=== PATIENT | male | born 1945 | race Caucasian/White ===

== ENCOUNTER 2019-02-13 04:10 | Observation (INO) | payer MEDICARE, BC ==
--- NOTE | 2019-02-13 04:36 | EDM.PDOC ---
ED HPI GENERAL MEDICAL PROBLEM - General Chief Complaint: General Stated Complaint: syncope Time Seen by Provider: 02/13/19 04:20 Source of Information: Reports: Patient History Limitations: Reports: No Limitations - History of Present Illness INITIAL COMMENTS - FREE TEXT/NARRATIVE: Patient is a 73-year-old gentleman who came in to the ER for evaluation of near syncopal episode patient apparently felt lightheaded went down to the floor and as he was going down felt like he was passed out but did not lose consciousness then crawled back to bed and took a couple baby aspirins took a drink of water called his son and and was brought to the ER . Onset: Sudden Duration: Minutes:, Other (Currently not dizzy feels tired) Location: Reports: Generalized Severity: Moderate Improves with: Reports: Rest Context: Reports: Other Associated Symptoms: Reports: Syncope - Related Data Allergies Allergy/AdvReac Type Severity Reaction Status Date / Time No Known Allergies Allergy Verified 02/13/19 04:45 ED ROS GENERAL - Review of Systems Review Of Systems: See Below Constitutional: Reports: Chills (Yesterday), Weakness HEENT: Reports: Other (History of cataract surgery) Respiratory: Reports: Shortness of Breath. Denies: Cough Cardiovascular: Reports: Lightheadedness. Denies: Chest Pain, Blood Pressure Problem, Claudication Endocrine: Reports: Fatigue GI/Abdominal: Reports: No Symptoms, Other (History of constipation worse lately) : Reports: Frequency, Urinary Retention Musculoskeletal: Reports: Neck Pain (Extension of neck) Skin: Reports: Bruising Neurological: Reports: Dizziness Psychiatric: Reports: No Symptoms ED EXAM, GENERAL - Physical Exam Exam: See Below Exam Limited By: No Limitations General Appearance: Alert, WD/WN, No Apparent Distress Ears: Normal External Exam, Normal Canal, Hearing Grossly Normal, Normal TMs Nose: Normal Inspection, Normal Mucosa, No Blood Throat/Mouth: Normal Inspection, Normal Lips, Normal Teeth, Normal Gums, Normal Oropharynx, Normal Voice, No Airway Compromise Head: Atraumatic, Normocephalic Neck: Normal Inspection, Supple, Non-Tender, Full Range of Motion Respiratory/Chest: No Respiratory Distress, Lungs Clear, Normal Breath Sounds, No Accessory Muscle Use, Chest Non-Tender Cardiovascular: Normal Peripheral Pulses, Regular Rate, Rhythm, No Edema, No Gallop, No JVD, No Murmur, No Rub GI/Abdominal: Normal Bowel Sounds, Soft, Non-Tender, No Organomegaly, No Distention, No Abnormal Bruit, No Mass (Male) Exam: Deferred Rectal (Males) Exam: Deferred Back Exam: Normal Inspection, Full Range of Motion, NT Extremities: Normal Inspection, Normal Range of Motion, Non-Tender, Normal Capillary Refill, No Pedal Edema Neurological: Alert, Oriented, CN II-XII Intact, Normal Cognition, Normal Gait, Normal Reflexes, No Motor/Sensory Deficits Psychiatric: Normal Affect, Normal Mood Skin Exam: Warm, Dry, Intact, Normal Color, No Rash Lymphatic: No Adenopathy Course - Vital Signs Last Recorded V/S: Last Vital Signs Temp 96 F 02/13/19 05:20 Pulse 75 02/13/19 05:20 Resp 16 02/13/19 05:20 BP 145/87 H 02/13/19 05:20 Pulse Ox 98 02/13/19 05:20 - Orders/Labs/Meds Orders: Medication Orders Sodium Chloride (Saline Flush) 10 ml FLUSH ASDIRECTED PRN PRN Reason: Keep Vein Open Labs: Laboratory Tests 02/13/19 02/13/19 02/13/19 Range/Units 04:45 04:45 04:45 WBC 6.8 (4.0-10.2) K/uL RBC 5.09 (4.33-5.41) M/uL Hgb 15.4 (13.1-16.8) g/dL Hct 45.4 (39.0-49.0) % MCV 89.2 (84.0-98.0) fL MCH 30.3 (28.2-33.3) pg MCHC 33.9 (31.7-36.0) g/dL RDW 13.9 (11.2-14.1) % Plt Count 198 (150-350) K/uL Neut % (Auto) 55.3 (45.0-80.0) % Lymph % (Auto) 27.5 (10.0-50.0) % Burnet % (Auto) 13.4 (2.0-14.0) % Eos % (Auto) 3.5 (0.0-5.0) % Baso % (Auto) 0.3 (0.0-2.0) % Neut # (Auto) 3.75 (1.40-7.00) K/uL Lymph # (Auto) 1.87 (0.50-3.50) K/uL Burnet # (Auto) 0.91 (0.00-1.00) K/uL Eos # (Auto) 0.24 (0.00-0.50) K/uL Baso # (Auto) 0.02 (0.00-0.20) K/uL PT 10.7 (9.5-12.0) SEC INR 1.0 APTT 27.3 (21.0-31.3) SEC D-Dimer, Quantitative 986 H (0-400) ng/mL Sodium (136-145) mmol/L Potassium (3.5-5.1) mmol/L Chloride (98-107) mmol/L Carbon Dioxide (21.0-32.0) mmol/L BUN (7-18) mg/dL Creatinine (0.51-1.17) mg/dL Est Cr Clr Drug Dosing mL/min Estimated GFR (MDRD) mL/min Glucose (74-106) mg/dL Lactic Acid (0.4-2.0) mmol/L Calcium (8.5-10.1) mg/dL Magnesium (1.8-2.4) mg/dL Total Bilirubin (0.2-1.0) mg/dL AST (15-37) U/L ALT (12-78) U/L Alkaline Phosphatase (46-116) IU/L Creatine Kinase (26-308) U/L Creatine Kinase Index (0.0-2.5) % CK-MB (CK-2) (0.00-3.60) ng/mL Troponin I (0.000-0.056) ng/mL NT-Pro-B Natriuret Pep (0-125) pg/mL Total Protein (6.4-8.2) g/dL Albumin (3.4-5.0) g/dL 02/13/19 02/13/19 Range/Units 04:45 04:45 WBC (4.0-10.2) K/uL RBC (4.33-5.41) M/uL Hgb (13.1-16.8) g/dL Hct (39.0-49.0) % MCV (84.0-98.0) fL MCH (28.2-33.3) pg MCHC (31.7-36.0) g/dL RDW (11.2-14.1) % Plt Count (150-350) K/uL Neut % (Auto) (45.0-80.0) % Lymph % (Auto) (10.0-50.0) % Burnet % (Auto) (2.0-14.0) % Eos % (Auto) (0.0-5.0) % Baso % (Auto) (0.0-2.0) % Neut # (Auto) (1.40-7.00) K/uL Lymph # (Auto) (0.50-3.50) K/uL Burnet # (Auto) (0.00-1.00) K/uL Eos # (Auto) (0.00-0.50) K/uL Baso # (Auto) (0.00-0.20) K/uL PT (9.5-12.0) SEC INR APTT (21.0-31.3) SEC D-Dimer, Quantitative (0-400) ng/mL Sodium 141 (136-145) mmol/L Potassium 3.9 (3.5-5.1) mmol/L Chloride 104 (98-107) mmol/L Carbon Dioxide 26.9 (21.0-32.0) mmol/L BUN 25 H (7-18) mg/dL Creatinine 1.23 H (0.51-1.17) mg/dL Est Cr Clr Drug Dosing 62.19 mL/min Estimated GFR (MDRD) 58 mL/min Glucose 108 H (74-106) mg/dL Lactic Acid 0.7 (0.4-2.0) mmol/L Calcium 8.6 (8.5-10.1) mg/dL Magnesium 1.7 L (1.8-2.4) mg/dL Total Bilirubin 0.6 (0.2-1.0) mg/dL AST 19 (15-37) U/L ALT 28 (12-78) U/L Alkaline Phosphatase 62 (46-116) IU/L Creatine Kinase 158 (26-308) U/L Creatine Kinase Index 1.6 (0.0-2.5) % CK-MB (CK-2) 2.50 (0.00-3.60) ng/mL Troponin I 0.000 (0.000-0.056) ng/mL NT-Pro-B Natriuret Pep 40 (0-125) pg/mL Total Protein 6.8 (6.4-8.2) g/dL Albumin 3.7 (3.4-5.0) g/dL Meds: Medications Generic Name Dose Route Start Last Admin Trade Name Freq PRN Reason Stop Dose Admin Sodium Chloride 10 ml 02/13/19 05:16 Saline Flush FLUSH ASDIRECTED PRN Keep Vein Open Departure - Departure Time of Disposition: 05:43 Disposition: Refer to Observation Condition: Fair Clinical Impression: Syncopal episodes - Discharge Information - Problem List & Annotations (1) Syncopal episodes SNOMED Code(s): 548048904 Code(s): R55 - SYNCOPE AND COLLAPSE Status: Acute Current Visit: Yes Annotation/Comment:: Syncopal episode without chest pain patient did take 3 baby aspirin prior to coming over here - Problem List Review Problem List Initiated/Reviewed/Updated: Yes - Assessment/Plan Admission H&P: Please use this note as an admission H&P Plan: We will admit him to observation place on telemetry repeat troponins 3 do ultrasounds of neck consider doing an Angio CT to determine if vertebral arteries are pain since when he extends his neck he has syncopal episodes. D- dimer is elevated patient is low risk consider not doing lower extremity ultrasound or chest CT
[2019-02-13] MEDS ORDERED: Sodium Chloride 0.9% 10 ML Syringe FLUSH PRN ×2 (05:16→08:39)
[2019-02-13] MEDS ORDERED: Ondansetron 4 MG/2 ML SDV IVPUSH PRN (08:30)
[2019-02-13] MEDS ORDERED: Temazepam 15 MG Cap PO PRN (08:39)
[2019-02-13] MEDS ORDERED: Famotidine 20 MG/2 ML SDV IVPUSH ONE (08:44)
[2019-02-13] MEDS ORDERED: methylPREDNISolone Sodium Succinate 125 MG/2 ML SDV IVPUSH ONE (08:47)
[2019-02-13] MEDS ORDERED: Iopamidol 755 Mg/ML 100 ML Bottle IVPUSH ONE (09:00)
[2019-02-13] MEDS ORDERED: Acetaminophen 325 MG Tab PO PRN (09:00)
[2019-02-13] MEDS ORDERED: Meclizine 25 MG Tab PO PRN (09:00)
[2019-02-13] MEDS: Magnesium Oxide 400 MG Tab PO SCH (09:27)
[2019-02-13] MEDS: amLODIPine 5 MG Tab PO SCH (09:27)
[2019-02-13] MEDS: Enoxaparin 100 MG/1 ML Syringe SUBCUT SCH (09:32)
--- NOTE | 2019-02-13 13:04 | PCM.SN ---
- Free Text/Narrative Note: Hospital records reviewed with patient admitted for a near syncopal episode. Cardiac workup is negative for acute KS at this time. Vital signs and neurological status are stable with neurological checks to be initiated with vitals. No apparent significant injury from near syncopal episode prior to admission. Carotid artery Doppler studies do show bilateral disease with estimated 50-69 percent internal carotid artery stenosis per verbal report from the wafer fabrication technician. His symptoms seem to be related more to labyrinthitis, however. I did do another ear exam today with no evidence of acute infection. When necessary meclizine and IV Solu-Medrol were given earlier this morning with patient somewhat symptomatic at time of carotid artery Doppler studies. He was cautioned to not take OTC aspirin for nonspecific symptoms with the patient apparently taken a "handful" of aspirin for his above symptoms prior to arrival. High-dose IV Pepcid therapy was initiated this morning, however no other GI complaints despite episode of emesis in the radiology department. Patient has been having some problems with chronic constipation and has refused recommended colonoscopy to this point from his regular providers by his history. He was counseled on the importance of the colonoscopy MARIA E after his cardiac status has been determined. CTA scan of the chest earlier this morning does not show any evidence of PE however note calcified coronary arteries and thoracic aorta. Cardiolite stress test on an outpatient basis is advisable. Echocardiogram could not be performed today however should be considered on outpatient basis. 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 High-dose subcutaneous Lovenox was initiated early this morning secondary to near syncopal episode. Magnesium oxide was also initiated this morning secondary to his hypomagnesemia, which should also be beneficial for his constipation. Continue to observe his renal function closely. Monitor shows heart rate in the 70s-80s with no ectopy or arrhythmia with improvement of borderline occasional bradycardia on arrival. He apparently did have some nonspecific left arm paresthesias with symptoms earlier today, and he has had similar episodes in the past. Repeat lab work, EKG, etc. in the a.m[place] [facility] [place] the [place]
[2019-02-13] MEDS ORDERED: Benazepril 10 MG Tab PO SCH (18:00)
[2019-02-13] MEDS ORDERED: Metoprolol Succinate 25 MG Tab.ER PO SCH (18:39)
[2019-02-13] MEDS ORDERED: atorvaSTATin 10 MG Tab PO SCH (20:00)
[2019-02-14] MEDS: Magnesium Oxide 400 MG Tab PO SCH (07:28)
[2019-02-14] MEDS: amLODIPine 5 MG Tab PO SCH (07:29)
[2019-02-14 07:49] LABS: HEMOGLOBIN A1C 5.6 % (4.3-5.7)
[2019-02-14 07:51] LABS: CHLORIDE,CL 106 mmol/L (98-107); SODIUM,NA 142 mmol/L (136-145)
[2019-02-14] MEDS ORDERED: Famotidine 20 MG/2 ML SDV IVPUSH SCH (08:00)
[2019-02-14] MEDS ORDERED: Aspirin 81 MG Tab.Chew PO SCH (08:00)
[2019-02-14] MEDS: Enoxaparin 100 MG/1 ML Syringe SUBCUT SCH (08:37)
[2019-02-14 12:06] VITALS: BP 114/64
--- NOTE | 2019-02-14 12:26 | PCM.PN ---
- General Info Date of Service: 02/14/19 Admission Dx/Problem (Free Text): Syncope Functional Status: Reports: Tolerating Diet, Ambulating, Urinating - Review of Systems General: Reports: No Symptoms (feels just fine and wants to get out of here!) HEENT: Reports: No Symptoms Pulmonary: Reports: No Symptoms Cardiovascular: Reports: No Symptoms Gastrointestinal: Reports: No Symptoms Genitourinary: Reports: No Symptoms Musculoskeletal: Reports: No Symptoms Skin: Reports: No Symptoms Neurological: Reports: No Symptoms Psychiatric: Reports: No Symptoms - Patient Data Vitals - Most Recent: Last Vital Signs Temp 98.1 F 02/14/19 11:29 Pulse 65 02/14/19 11:29 Resp 16 02/14/19 11:29 BP 114/64 02/14/19 11:29 Pulse Ox 96 02/14/19 11:29 Weight - Most Recent: 213 lb 8 oz I&O - Last 24 Hours: Intake & Output 02/13/19 02/14/19 02/14/19 22:59 06:59 14:59 Intake Total 480 Balance 480 Lab Results Last 24 Hours: Laboratory Results - last 24 hr 02/13/19 02/14/19 02/14/19 Range/Units 17:00 07:00 07:00 WBC 12.1 H (4.0-10.2) K/uL RBC 4.76 (4.33-5.41) M/uL Hgb 14.5 (13.1-16.8) g/dL Hct 42.9 (39.0-49.0) % MCV 90.1 (84.0-98.0) fL MCH 30.5 (28.2-33.3) pg MCHC 33.8 (31.7-36.0) g/dL RDW 13.9 (11.2-14.1) % Plt Count 220 (150-350) K/uL Neut % (Auto) 77.1 (45.0-80.0) % Lymph % (Auto) 12.6 (10.0-50.0) % Howard % (Auto) 10.2 (2.0-14.0) % Eos % (Auto) 0.0 (0.0-5.0) % Baso % (Auto) 0.1 (0.0-2.0) % Neut # (Auto) 9.33 H (1.40-7.00) K/uL Lymph # (Auto) 1.53 (0.50-3.50) K/uL Howard # (Auto) 1.23 H (0.00-1.00) K/uL Eos # (Auto) 0.00 (0.00-0.50) K/uL Baso # (Auto) 0.01 (0.00-0.20) K/uL D-Dimer, Quantitative 480 H (0-400) ng/mL Sodium (136-145) mmol/L Potassium (3.5-5.1) mmol/L Chloride (98-107) mmol/L Carbon Dioxide (21.0-32.0) mmol/L BUN (7-18) mg/dL Creatinine (0.51-1.17) mg/dL Est Cr Clr Drug Dosing mL/min Estimated GFR (MDRD) mL/min Glucose (74-106) mg/dL Hemoglobin A1c (4.3-5.7) % Calcium (8.5-10.1) mg/dL Total Bilirubin (0.2-1.0) mg/dL AST (15-37) U/L ALT (12-78) U/L Alkaline Phosphatase (46-116) IU/L Creatine Kinase 136 (26-308) U/L Creatine Kinase Index 1.7 (0.0-2.5) % CK-MB (CK-2) 2.30 (0.00-3.60) ng/mL Troponin I 0.000 (0.000-0.056) ng/mL Total Protein (6.4-8.2) g/dL Albumin (3.4-5.0) g/dL Triglycerides (30-150) mg/dL Cholesterol (100-200) mg/dL LDL Cholesterol, Calc (0-100) mg/dL HDL Cholesterol (40-60) mg/dL 02/14/19 02/14/19 Range/Units 07:00 07:00 WBC (4.0-10.2) K/uL RBC (4.33-5.41) M/uL Hgb (13.1-16.8) g/dL Hct (39.0-49.0) % MCV (84.0-98.0) fL MCH (28.2-33.3) pg MCHC (31.7-36.0) g/dL RDW (11.2-14.1) % Plt Count (150-350) K/uL Neut % (Auto) (45.0-80.0) % Lymph % (Auto) (10.0-50.0) % Howard % (Auto) (2.0-14.0) % Eos % (Auto) (0.0-5.0) % Baso % (Auto) (0.0-2.0) % Neut # (Auto) (1.40-7.00) K/uL Lymph # (Auto) (0.50-3.50) K/uL Howard # (Auto) (0.00-1.00) K/uL Eos # (Auto) (0.00-0.50) K/uL Baso # (Auto) (0.00-0.20) K/uL D-Dimer, Quantitative (0-400) ng/mL Sodium 142 (136-145) mmol/L Potassium 4.3 (3.5-5.1) mmol/L Chloride 106 (98-107) mmol/L Carbon Dioxide 26.1 (21.0-32.0) mmol/L BUN 21 H (7-18) mg/dL Creatinine 1.07 (0.51-1.17) mg/dL Est Cr Clr Drug Dosing 71.52 mL/min Estimated GFR (MDRD) > 60 mL/min Glucose 122 H (74-106) mg/dL Hemoglobin A1c 5.6 (4.3-5.7) % Calcium 8.4 L (8.5-10.1) mg/dL Total Bilirubin 0.5 (0.2-1.0) mg/dL AST 15 (15-37) U/L ALT 26 (12-78) U/L Alkaline Phosphatase 55 (46-116) IU/L Creatine Kinase 90 (26-308) U/L Creatine Kinase Index 1.8 (0.0-2.5) % CK-MB (CK-2) 1.60 (0.00-3.60) ng/mL Troponin I 0.000 (0.000-0.056) ng/mL Total Protein 6.2 L (6.4-8.2) g/dL Albumin 3.1 L (3.4-5.0) g/dL Triglycerides 122 (30-150) mg/dL Cholesterol 195 (100-200) mg/dL LDL Cholesterol, Calc 124 H (0-100) mg/dL HDL Cholesterol 47 (40-60) mg/dL Med Orders - Current: Current Medications Acetaminophen (Tylenol) 650 mg PO Q4H PRN PRN Reason: Pain Amlodipine Besylate (Norvasc) 5 mg PO DAILY [facility] Last Admin: 02/14/19 07:29 Dose: 5 mg Aspirin (Aspirin) 81 mg PO DAILY [facility] Last Admin: 02/14/19 07:28 Dose: 81 mg Atorvastatin Calcium (Lipitor) 20 mg PO BEDTIME [facility] Last Admin: 02/13/19 19:17 Dose: 20 mg Benazepril HCl (Lotensin) 20 mg PO DAILY@18 [facility] Last Admin: 02/13/19 17:24 Dose: 20 mg Enoxaparin Sodium (Lovenox) 100 mg SUBCUT Q24H [facility] Last Admin: 02/14/19 08:37 Dose: 100 mg Famotidine (Pepcid) 20 mg IVPUSH BID [facility] Last Admin: 02/14/19 07:28 Dose: 20 mg Magnesium Oxide (Magnesium Oxide) 400 mg PO DAILY [facility] Last Admin: 02/14/19 07:28 Dose: 400 mg Meclizine HCl (Antivert) 25 mg PO Q6H PRN PRN Reason: Dizziness Metoprolol Succinate (Toprol Xl) 25 mg PO QPM [facility] Last Admin: 02/13/19 19:17 Dose: 25 mg Ondansetron HCl (Zofran) 4 mg IVPUSH Q6H PRN PRN Reason: Nausea/Vomiting Last Admin: 02/13/19 08:44 Dose: 4 mg Sodium Chloride (Saline Flush) 10 ml FLUSH ASDIRECTED PRN PRN Reason: Keep Vein Open Sodium Chloride (Saline Flush) 10 ml FLUSH Q12HR PRN PRN Reason: Keep Vein Open Temazepam (Restoril) 15 mg PO BEDTIME PRN PRN Reason: Insomnia Discontinued Medications Famotidine (Pepcid) 40 mg IVPUSH ONETIME ONE Stop: 02/13/19 08:45 Last Admin: 02/13/19 09:42 Dose: 40 mg Iopamidol (Isovue-370 (76%)) 100 ml IVPUSH ONETIME ONE Stop: 02/13/19 09:01 Last Admin: 02/13/19 14:11 Dose: 100 ml Methylprednisolone Sodium Succinate (Solu-Medrol) 125 mg IVPUSH ONETIME ONE Stop: 02/13/19 08:48 Last Admin: 02/13/19 09:29 Dose: 125 mg Metoprolol Succinate (Toprol Xl) 25 mg PO QPM [facility] - Exam General: Alert, Oriented HEENT: Pupils Equal, Pupils Reactive, EOMI, Mucous Membr. Moist/[place] Neck: Supple, Trachea Midline Lungs: Clear to Auscultation, Normal Respiratory Effort Cardiovascular: Regular Rate, Regular Rhythm GI/Abdominal Exam: Normal Bowel Sounds, Soft, Non-Tender (Male) Exam: Deferred Back Exam: Normal Inspection Extremities: Normal Inspection, No Pedal Edema Skin: Warm, Dry, Intact Neurological: No New Focal Deficit Psy/Mental Status: Alert, Normal Affect, Normal Mood - Problem List Review Problem List Initiated/Reviewed/Updated: Yes - My Orders Last 24 Hours: My Active Orders 02/14/19 11:57 Ready for Discharge [RC] PER UNIT ROUTINE - Plan Plan:: 02-14-19 Caprice Joyce PA-C Pt. says feels just fine and wants to get out of here! is with. He denies that he has had any further feelings of impending syncope or near-syncope , he denies any previous history of similar event prior to the episode that brought him to the ER yesterday morning. Reviewed work-up here in the hospital , he knows that the chest CT scan and BLE US found no blood clots. Reviewed carotid US which does indicate 50-69% stenosis of both ICA's, discussed referral to Vascular/IR and he will consider this. Recommended Cardiolyte stress test and he says he will consider this as well. He does agree that I can set him up for colonoscopy here at [facility] which he many times refused in past clinic visits and this [place] [facility] We will also have further discussion there regarding referral to Vascular/IR and the stress test. He is discharged to home at this time with no change in previous home meds.
--- NOTE | 2019-02-14 13:17 | PCM.DCSUM1 ---
Discharge Summary - Hospital Course HPI Initial Comments: Admitted yesterday morning after initial eval in the ER for syncopal episode at home. Diagnosis: Stroke: No - Discharge Data Discharge Date: 02/14/19 Discharge Disposition: Home, Self-Care 01 Condition: Good - Patient Summary/Data Hospital Course: Pt has had no repeat episodes of syncope/near-syncope since admission for observation. He denies any complaints to me on this interview and exam. Workup has found no etiology for the event. - Patient Instructions Diet: Usual Diet as Tolerated Activity: As Tolerated Driving: May Drive Today Showering/Bathing: May Shower Other/Special Instructions: Follow up in one or two weeks in the clinic for prep instructions for the colonoscopy we will be setting you up for. - Discharge Plan *PRESCRIPTION DRUG MONITORING PROGRAM REVIEWED*: Not Applicable *COPY OF PRESCRIPTION DRUG MONITORING REPORT IN PATIENT TITI: Not Applicable Home Medications: Home Meds Aspirin 81 mg PO DAILY 02/13/19 [History] Benazepril [Lotensin] 20 mg PO DAILY@18 02/13/19 [History] amLODIPine Besylate [Amlodipine Besylate] 1 tab PO DAILY 02/13/19 [History] atorvaSTATin [Lipitor] 20 mg PO BEDTIME 02/13/19 [History] Patient Handouts: Syncope, [id number] Forms: ED Department Discharge Referrals: Cathy Joyce PA [Primary Care Provider] - - Discharge Summary/Plan Comment DC Time >30 min.: Yes Discharge Summary/Plan Comment: Discharging to home today with no change in medications. Follow up planned in the clinic for one to two weeks. - Patient Data Vitals - Most Recent: Last Vital Signs Temp 98.1 F 02/14/19 11:29 Pulse 65 02/14/19 11:29 Resp 16 02/14/19 11:29 BP 114/64 02/14/19 11:29 Pulse Ox 96 02/14/19 11:29 Weight - Most Recent: 213 lb 8 oz I&O - Last 24 hours: Intake & Output 02/13/19 02/14/19 02/14/19 22:59 06:59 14:59 Intake Total 480 Balance 480 Lab Results - Last 24 hrs: Laboratory Results - last 24 hr 02/13/19 02/14/19 02/14/19 Range/Units 17:00 07:00 07:00 WBC 12.1 H (4.0-10.2) K/uL RBC 4.76 (4.33-5.41) M/uL Hgb 14.5 (13.1-16.8) g/dL Hct 42.9 (39.0-49.0) % MCV 90.1 (84.0-98.0) fL MCH 30.5 (28.2-33.3) pg MCHC 33.8 (31.7-36.0) g/dL RDW 13.9 (11.2-14.1) % Plt Count 220 (150-350) K/uL Neut % (Auto) 77.1 (45.0-80.0) % Lymph % (Auto) 12.6 (10.0-50.0) % [place] % (Auto) 10.2 (2.0-14.0) % Eos % (Auto) 0.0 (0.0-5.0) % Baso % (Auto) 0.1 (0.0-2.0) % Neut # (Auto) 9.33 H (1.40-7.00) K/uL Lymph # (Auto) 1.53 (0.50-3.50) K/uL [place] # (Auto) 1.23 H (0.00-1.00) K/uL Eos # (Auto) 0.00 (0.00-0.50) K/uL Baso # (Auto) 0.01 (0.00-0.20) K/uL D-Dimer, Quantitative 480 H (0-400) ng/mL Sodium (136-145) mmol/L Potassium (3.5-5.1) mmol/L Chloride (98-107) mmol/L Carbon Dioxide (21.0-32.0) mmol/L BUN (7-18) mg/dL Creatinine (0.51-1.17) mg/dL Est Cr Clr Drug Dosing mL/min Estimated GFR (MDRD) mL/min Glucose (74-106) mg/dL Hemoglobin A1c (4.3-5.7) % Calcium (8.5-10.1) mg/dL Total Bilirubin (0.2-1.0) mg/dL AST (15-37) U/L ALT (12-78) U/L Alkaline Phosphatase (46-116) IU/L Creatine Kinase 136 (26-308) U/L Creatine Kinase Index 1.7 (0.0-2.5) % CK-MB (CK-2) 2.30 (0.00-3.60) ng/mL Troponin I 0.000 (0.000-0.056) ng/mL Total Protein (6.4-8.2) g/dL Albumin (3.4-5.0) g/dL Triglycerides (30-150) mg/dL Cholesterol (100-200) mg/dL LDL Cholesterol, Calc (0-100) mg/dL HDL Cholesterol (40-60) mg/dL 02/14/19 02/14/19 Range/Units 07:00 07:00 WBC (4.0-10.2) K/uL RBC (4.33-5.41) M/uL Hgb (13.1-16.8) g/dL Hct (39.0-49.0) % MCV (84.0-98.0) fL MCH (28.2-33.3) pg MCHC (31.7-36.0) g/dL RDW (11.2-14.1) % Plt Count (150-350) K/uL Neut % (Auto) (45.0-80.0) % Lymph % (Auto) (10.0-50.0) % [place] % (Auto) (2.0-14.0) % Eos % (Auto) (0.0-5.0) % Baso % (Auto) (0.0-2.0) % Neut # (Auto) (1.40-7.00) K/uL Lymph # (Auto) (0.50-3.50) K/uL [place] # (Auto) (0.00-1.00) K/uL Eos # (Auto) (0.00-0.50) K/uL Baso # (Auto) (0.00-0.20) K/uL D-Dimer, Quantitative (0-400) ng/mL Sodium 142 (136-145) mmol/L Potassium 4.3 (3.5-5.1) mmol/L Chloride 106 (98-107) mmol/L Carbon Dioxide 26.1 (21.0-32.0) mmol/L BUN 21 H (7-18) mg/dL Creatinine 1.07 (0.51-1.17) mg/dL Est Cr Clr Drug Dosing 71.52 mL/min Estimated GFR (MDRD) > 60 mL/min Glucose 122 H (74-106) mg/dL Hemoglobin A1c 5.6 (4.3-5.7) % Calcium 8.4 L (8.5-10.1) mg/dL Total Bilirubin 0.5 (0.2-1.0) mg/dL AST 15 (15-37) U/L ALT 26 (12-78) U/L Alkaline Phosphatase 55 (46-116) IU/L Creatine Kinase 90 (26-308) U/L Creatine Kinase Index 1.8 (0.0-2.5) % CK-MB (CK-2) 1.60 (0.00-3.60) ng/mL Troponin I 0.000 (0.000-0.056) ng/mL Total Protein 6.2 L (6.4-8.2) g/dL Albumin 3.1 L (3.4-5.0) g/dL Triglycerides 122 (30-150) mg/dL Cholesterol 195 (100-200) mg/dL LDL Cholesterol, Calc 124 H (0-100) mg/dL HDL Cholesterol 47 (40-60) mg/dL Med Orders - Current: Current Medications Discontinued Medications Acetaminophen (Tylenol) 650 mg PO Q4H PRN PRN Reason: Pain Amlodipine Besylate (Norvasc) 5 mg PO DAILY [facility] Last Admin: 02/14/19 07:29 Dose: 5 mg Aspirin (Aspirin) 81 mg PO DAILY [facility] Last Admin: 02/14/19 07:28 Dose: 81 mg Atorvastatin Calcium (Lipitor) 20 mg PO BEDTIME [facility] Last Admin: 02/13/19 19:17 Dose: 20 mg Benazepril HCl (Lotensin) 20 mg PO DAILY@18 [facility] Last Admin: 02/13/19 17:24 Dose: 20 mg Enoxaparin Sodium (Lovenox) 100 mg SUBCUT Q24H [facility] Last Admin: 02/14/19 08:37 Dose: 100 mg Famotidine (Pepcid) 40 mg IVPUSH ONETIME ONE Stop: 02/13/19 08:45 Last Admin: 02/13/19 09:42 Dose: 40 mg Famotidine (Pepcid) 20 mg IVPUSH BID [facility] Last Admin: 02/14/19 07:28 Dose: 20 mg Iopamidol (Isovue-370 (76%)) 100 ml IVPUSH ONETIME ONE Stop: 02/13/19 09:01 Last Admin: 02/13/19 14:11 Dose: 100 ml Magnesium Oxide (Magnesium Oxide) 400 mg PO DAILY [facility] Last Admin: 02/14/19 07:28 Dose: 400 mg Meclizine HCl (Antivert) 25 mg PO Q6H PRN PRN Reason: Dizziness Methylprednisolone Sodium Succinate (Solu-Medrol) 125 mg IVPUSH ONETIME ONE Stop: 02/13/19 08:48 Last Admin: 02/13/19 09:29 Dose: 125 mg Metoprolol Succinate (Toprol Xl) 25 mg PO QPM [facility] Metoprolol Succinate (Toprol Xl) 25 mg PO QPM [facility] Last Admin: 02/13/19 19:17 Dose: 25 mg Ondansetron HCl (Zofran) 4 mg IVPUSH Q6H PRN PRN Reason: Nausea/Vomiting Last Admin: 02/13/19 08:44 Dose: 4 mg Sodium Chloride (Saline Flush) 10 ml FLUSH ASDIRECTED PRN PRN Reason: Keep Vein Open Sodium Chloride (Saline Flush) 10 ml FLUSH Q12HR PRN PRN Reason: Keep Vein Open Temazepam (Restoril) 15 mg PO BEDTIME PRN PRN Reason: Insomnia
[2019-02-14] MEDS ORDERED: Metoprolol Succinate 25 MG Tab.ER PO SCH (18:00)
== END 2019-02-14 12:20 | disposition home or self-care (01) ==
LOC: LL.ED 04:10 → LL.MS 05:16 → UNDOADMOB 05:16
PROVIDERS: ADMIT Family Medicine; ATTEND Family Medicine
DX: R55 Syncope and collapse (principal); I65.23 Occlusion and stenosis of bilateral carotid arteries; E83.42 Hypomagnesemia; M71.22 Synovial cyst of popliteal space [Baker], left knee; M71.21 Synovial cyst of popliteal space [Baker], right knee
CPT/HCPCS: 36415; 71045; 71275; 80053; 80061; 82550; 82553; 83036; 83605; 83735; 83880; 84484; 85025; 85379; 85610; 85730; 93005; 93880; 93970; 96372; 96374; 96375; 96376; 99285-25; A9270-GY; G0378; J1650; J2405; J2930; J3490; Q9967

== ENCOUNTER 2019-10-19 16:11 | Emergency (ER) | payer MEDICARE, BC ==
[2019-10-19] MEDS ORDERED: Ondansetron 4 MG/2 ML SDV ONE ×2 (16:24→16:26)
[2019-10-19] MEDS ORDERED: 50% Dextrose in Water 50 ML Syringe ONE ×2 (16:24→16:26)
[2019-10-19 16:42] LABS: CHLORIDE,CL 105 mmol/L (98-107); SODIUM,NA 140 mmol/L (136-145)
--- NOTE | 2019-10-19 17:07 | EDM.PDOC ---
ED HPI GENERAL MEDICAL PROBLEM - General Chief Complaint: Neuro Symptoms/Deficits Time Seen by Provider: 10/19/19 16:20 Source of Information: Reports: Patient, Family History Limitations: Reports: Altered Mental Status - History of Present Illness INITIAL COMMENTS - FREE TEXT/NARRATIVE: Pt presents to ER via private vehicle with family Pt noted to be very confused cannot rember anything but his name No focal motor issues Pt had 2 teeth extracted yesterday Was only given 2% Lido with epi No sedation Family states has done well until 1500 Pt now very confused and complains of dizzy Does not remember any events including having teeth extracted No trauma No new meds No travel No fever No N/V/D Onset: Sudden Duration: Hour(s): Associated Symptoms: Reports: Other (Confusion) - Related Data Allergies Allergy/AdvReac Type Severity Reaction Status Date / Time No Known Allergies Allergy Verified 02/13/19 04:45 Home Meds: Home Meds Aspirin 81 mg PO DAILY 02/13/19 [History] Benazepril [Lotensin] 20 mg PO DAILY@18 02/13/19 [History] amLODIPine Besylate [Amlodipine Besylate] 1 tab PO DAILY 02/13/19 [History] atorvaSTATin [Lipitor] 20 mg PO BEDTIME 02/13/19 [History] Past Medical History HEENT History: Reports: Cataract Cardiovascular History: Reports: High Cholesterol, Hypertension - Infectious Disease History Infectious Disease History: Reports: Measles - Past Surgical History GI Surgical History: Reports: Appendectomy Social & Family History - Caffeine Use Caffeine Use: Reports: Coffee, Soda ED ROS GENERAL - Review of Systems Review Of Systems: See Below Constitutional: Reports: No Symptoms HEENT: Reports: Other (Dental extraction yesterday) Respiratory: Reports: No Symptoms Cardiovascular: Reports: No Symptoms GI/Abdominal: Reports: No Symptoms Musculoskeletal: Reports: No Symptoms Neurological: Reports: Confusion - Physical Exam Exam: See Below Exam Limited By: Altered Mental Status Eye Exam: Bilateral Eye: EOMI, PERRL Throat/Mouth: Other (Dental extractions) Head Exam: Atraumatic Respiratory/Chest: Lungs Clear Cardiovascular: Regular Rate, Rhythm GI/Abdominal: Non-Tender Neuro Exam (Abbreviated): No Motor/Sensory Deficits, Confused, Other (See stroke scale) Back Exam: Normal Inspection Extremities: Normal Inspection, Normal Capillary Refill Course - Orders/Labs/Meds Orders: Active Orders 24 hr Category Date Time Status EKG Documentation Completion [RC] ASDIRECTED Care 10/19/19 16:21 Active Chest 1V Frontal [CR] Routine Exams 10/19/19 16:42 Taken Head wo Cont [CT] Routine Exams 10/19/19 16:21 Taken CK W CKMB [CHEM] Stat Lab 10/19/19 16:20 Received DRUG SCREEN, URINE [URCHEM] Stat Lab 10/19/19 16:22 Ordered MAGNESIUM [CHEM] Stat Lab 10/19/19 16:20 Received PRO B-TYPE NATRIUR PEPT,BNPPRO [CHEM] Stat Lab 10/19/19 16:20 Received PROLACTIN [REF] Stat Lab 10/19/19 16:20 Received TROPONIN I [CHEM] Stat Lab 10/19/19 16:20 Received UA RFX ADY AND CULT IF INDIC [URIN] Stat Lab 10/19/19 16:21 Ordered Labs: Laboratory Tests 10/19/19 10/19/19 10/19/19 Range/Units 16:20 16:20 16:20 WBC 8.4 (4.0-10.2) K/uL RBC 5.33 (4.33-5.41) M/uL Hgb 15.6 (13.1-16.8) g/dL Hct 46.7 (39.0-49.0) % MCV 87.6 (84.0-98.0) fL MCH 29.3 (28.2-33.3) pg MCHC 33.4 (31.7-36.0) g/dL RDW 14.6 H (11.2-14.1) % Plt Count 180 (150-350) K/uL Neut % (Auto) 61.7 (45.0-80.0) % Lymph % (Auto) 21.9 (10.0-50.0) % [place] % (Auto) 11.6 (2.0-14.0) % Eos % (Auto) 4.3 (0.0-5.0) % Baso % (Auto) 0.5 (0.0-2.0) % Neut # (Auto) 5.18 (1.40-7.00) K/uL Lymph # (Auto) 1.84 (0.50-3.50) K/uL [place] # (Auto) 0.97 (0.00-1.00) K/uL Eos # (Auto) 0.36 (0.00-0.50) K/uL Baso # (Auto) 0.04 (0.00-0.20) K/uL PT (9.5-12.0) SEC INR APTT 26.8 (21.0-31.3) SEC Sodium 140 (136-145) mmol/L Potassium 4.0 (3.5-5.1) mmol/L Chloride 105 (98-107) mmol/L Carbon Dioxide 25.2 (21.0-32.0) mmol/L BUN 18 (7-18) mg/dL Creatinine 1.30 H (0.51-1.17) mg/dL Est Cr Clr Drug Dosing TNP Estimated GFR (MDRD) 54 mL/min Glucose 112 H (74-106) mg/dL Calcium 8.4 L (8.5-10.1) mg/dL Total Bilirubin 0.5 (0.2-1.0) mg/dL AST 19 (15-37) U/L ALT 24 (12-78) U/L Alkaline Phosphatase 71 (46-116) IU/L Troponin I 0.000 (0.000-0.056) ng/mL Total Protein 6.9 (6.4-8.2) g/dL Albumin 3.7 (3.4-5.0) g/dL Ethyl Alcohol 0.003 (0.000-0.080) g/dL 10/19/19 Range/Units 16:20 WBC (4.0-10.2) K/uL RBC (4.33-5.41) M/uL Hgb (13.1-16.8) g/dL Hct (39.0-49.0) % MCV (84.0-98.0) fL MCH (28.2-33.3) pg MCHC (31.7-36.0) g/dL RDW (11.2-14.1) % Plt Count (150-350) K/uL Neut % (Auto) (45.0-80.0) % Lymph % (Auto) (10.0-50.0) % [place] % (Auto) (2.0-14.0) % Eos % (Auto) (0.0-5.0) % Baso % (Auto) (0.0-2.0) % Neut # (Auto) (1.40-7.00) K/uL Lymph # (Auto) (0.50-3.50) K/uL [place] # (Auto) (0.00-1.00) K/uL Eos # (Auto) (0.00-0.50) K/uL Baso # (Auto) (0.00-0.20) K/uL PT 11.4 (9.5-12.0) SEC INR 1.1 APTT (21.0-31.3) SEC Sodium (136-145) mmol/L Potassium (3.5-5.1) mmol/L Chloride (98-107) mmol/L Carbon Dioxide (21.0-32.0) mmol/L BUN (7-18) mg/dL Creatinine (0.51-1.17) mg/dL Est Cr Clr Drug Dosing Estimated GFR (MDRD) mL/min Glucose (74-106) mg/dL Calcium (8.5-10.1) mg/dL Total Bilirubin (0.2-1.0) mg/dL AST (15-37) U/L ALT (12-78) U/L Alkaline Phosphatase (46-116) IU/L Troponin I (0.000-0.056) ng/mL Total Protein (6.4-8.2) g/dL Albumin (3.4-5.0) g/dL Ethyl Alcohol (0.000-0.080) g/dL Meds: Medications Discontinued Medications Generic Name Dose Route Start Last Admin Trade Name Suzie PRN Reason Stop Dose Admin Dextrose/Water Confirm 10/19/19 16:24 Dextrose 50% In Water Administered 10/19/19 16:25 Dose 50 ml .ROUTE .STK-MED ONE Ondansetron HCl Confirm 10/19/19 16:24 Zofran Administered 10/19/19 16:25 Dose 4 mg .ROUTE .STK-MED ONE - Re-Assessments/Exams Free Text/Narrative Re-Assessment/Exam: 10/19/19 17:07 Pt remains very confused See CT and labs D/W Dr F[facility] Will accept in transfer Transfer via [facility] Departure - Departure Time of Disposition: 17:15 Disposition: DC/Tfer to Acute Hospital 02 Clinical Impression: Confusion - Discharge Information Forms: ED Department Discharge - My Orders Last 24 Hours: My Active Orders 10/19/19 16:20 CK W CKMB [CHEM] Stat MAGNESIUM [CHEM] Stat PRO B-TYPE NATRIUR PEPT,BNPPRO [CHEM] Stat PROLACTIN [REF] Stat TROPONIN I [CHEM] Stat 10/19/19 16:21 EKG Documentation Completion [RC] ASDIRECTED Head wo Cont [CT] Routine UA RFX ADY AND CULT IF INDIC [URIN] Stat 10/19/19 16:22 DRUG SCREEN, URINE [URCHEM] Stat 10/19/19 16:42 Chest 1V Frontal [CR] Routine - Assessment/Plan Last 24 Hours: My Active Orders 10/19/19 16:20 CK W CKMB [CHEM] Stat MAGNESIUM [CHEM] Stat PRO B-TYPE NATRIUR PEPT,BNPPRO [CHEM] Stat PROLACTIN [REF] Stat TROPONIN I [CHEM] Stat 10/19/19 16:21 EKG Documentation Completion [RC] ASDIRECTED Head wo Cont [CT] Routine UA RFX ADY AND CULT IF INDIC [URIN] Stat 10/19/19 16:22 DRUG SCREEN, URINE [URCHEM] Stat 10/19/19 16:42 Chest 1V Frontal [CR] Routine
[2019-10-19 17:41] LABS: BARBITURATE SCREEN,URINE NEGATIVE (NEGATIVE); BENZODIAZEPINES SCREEN,URINE NEGATIVE (NEGATIVE); EDDP,URINE SCREEN NEGATIVE (NEGATIVE); TCA SCREEN,URINE NEGATIVE (NEGATIVE); THC SCREEN,URINE 50 NG/ML NEGATIVE (NEGATIVE)
== END 2019-10-19 17:22 ==
LOC: LL.ED 16:11
DX: R41.0 Disorientation, unspecified (principal); I10 Essential (primary) hypertension; E78.00 Pure hypercholesterolemia, unspecified; Z79.82 Long term (current) use of aspirin; Z79.899 Other long term (current) drug therapy
CPT/HCPCS: 36415; 70450; 71045; 80053; 80305-QW; 81003; 82550; 82553; 83735; 83880; 84146; 84484; 85025; 85610; 85730; 93005; 96374; 99284; 99285-25; G0480; J2405

== ENCOUNTER 2021-01-10 16:14 | Observation (INO) | payer MEDICARE, BC ==
[2021-01-10] MEDS ORDERED: GI Cocktail Oral Solution 30 ML PO ONE (16:27)
[2021-01-10] MEDS ORDERED: GI Cocktail Oral Solution 30 ML ONE (16:28)
[2021-01-10] MEDS ORDERED: Iopamidol 612 MG/ML 100 ML Bottle IVPUSH ONE (16:29)
[2021-01-10] MEDS ORDERED: cloNIDine 0.1 MG Tab PO ONE (16:35)
--- NOTE | 2021-01-10 16:37 | EDM.PDOC ---
ED HPI GENERAL MEDICAL PROBLEM - General Chief Complaint: Chest Pain Stated Complaint: chest pain Time Seen by Provider: 01/10/21 16:20 Source of Information: Reports: Patient, Family History Limitations: Reports: No Limitations - History of Present Illness INITIAL COMMENTS - FREE TEXT/NARRATIVE: He is brought to the ED by family for evaluation of severe epigastric abdominal pain. He reports severe burning and pain in the epigastrium that started about two hours earlier. Some pain up into the chest, but not as severe. Pain is constant. No radiation. No back pain. No nausea or vomiting. He had similar pain two days ago but it resolved spontaneously. Was just sitting at home when the pain started. No history of heart problems. Positive family history of [place]. Positive history of HTN and hyperlipidemia. Apparently is not great about taking his medicine. Fever last night, but none today. No bloody or dark tarry stools. No other recent illness. Abdominal Pain Score (Numeric/FACES): 7 - Related Data Allergies Allergy/AdvReac Type Severity Reaction Status Date / Time No Known Allergies Allergy Verified 01/10/21 16:15 Home Meds: Home Meds Aspirin 81 mg PO DAILY 02/13/19 [History] Benazepril [Lotensin] 20 mg PO BEDTIME 02/13/19 [History] amLODIPine Besylate [Amlodipine Besylate] 1 tab PO DAILY 02/13/19 [History] atorvaSTATin [Lipitor] 20 mg PO BEDTIME 02/13/19 [History] Budesonide/Formoterol Fumarate [Symbicort 80-4.5 MCG] 2 puff INH BID 01/10/21 [History] Past Medical History HEENT History: Reports: Cataract Cardiovascular History: Reports: High Cholesterol, Hypertension - Infectious Disease History Infectious Disease History: Reports: Measles - Past Surgical History GI Surgical History: Reports: Appendectomy Social & Family History - Caffeine Use Caffeine Use: Reports: Coffee, Soda ED ROS GENERAL - Review of Systems Review Of Systems: See Below Constitutional: Reports: Fever. Denies: Chills HEENT: Denies: Nose Pain, Rhinitis, Throat Pain Respiratory: Denies: Shortness of Breath, Cough Cardiovascular: Reports: Chest Pain. Denies: Palpitations, Syncope GI/Abdominal: Reports: Abdominal Pain. Denies: Diarrhea, Hematemesis, Hematochezia, Melena, Nausea, Vomiting : Denies: Dysuria, Frequency, Urgency Neurological: Denies: Confusion, Dizziness, Headache Psychiatric: Denies: Anxiety, Depression Hematologic/Lymphatic: Denies: Anemia ED EXAM, GENERAL - Physical Exam Exam: See Below Exam Limited By: No Limitations General Appearance: Alert, WD/WN, Moderate Distress Ears: Normal External Exam, Normal Canal, Hearing Grossly Normal, Normal TMs Nose: Normal Inspection, Normal Mucosa Throat/Mouth: Normal Inspection, Normal Oropharynx Head: Atraumatic, Normocephalic Respiratory/Chest: No Respiratory Distress, Lungs Clear, Normal Breath Sounds Cardiovascular: Regular Rate, Rhythm, No Edema, No Murmur GI/Abdominal: Normal Bowel Sounds, Soft, No Organomegaly, No Distention, No Mass, Tender (Mild epigastric tenderness. No other tenderness.) Psychiatric: Normal Affect, Normal Mood Skin Exam: Warm, Dry #1 Interpretation EKG Date: 01/10/21 Time: 16:10 Rhythm: NSR [place]: Normal P-Wave: Present QRS: Normal ST-T: Normal QT: Normal Course - Vital Signs Text/Narrative:: Upon arrival he was in significant pain. EKG was negative. Pain seemed more GI so he was given a GI cocktail without improvement. He was givin 0.1 mg of clonidine with minimal change in the blood pressure. Although his pain did not seem cardiac, he was given 1 nitroglycerin SL and blood pressure dropped to 60/40 and patient became symptomatic. He was given 500cc NS and symptoms resolved with improvement in his blood pressure. Labs showed elevated liver function tests but otherwise not very remarkable. CT scan of the chest, abdomen and pelvis ere negative for acute process. He was given a total of 6 mg morphine over 3 hours and pain did improve. Probable gastritis. Will admit for monitoring, protonix and carafate. Last Recorded V/S: Last Vital Signs Temp 36.6 C 01/10/21 16:15 Pulse 113 H 01/10/21 18:00 Resp 21 H 01/10/21 18:00 BP 160/80 H 01/10/21 18:00 Pulse Ox 100 01/10/21 18:00 - Orders/Labs/Meds Orders: Active Orders 24 hr Category Date Time Status EKG Documentation Completion [RC] ASDIRECTED Care 01/10/21 16:21 Active Abdomen w Cont [CT] Stat Exams 01/10/21 16:25 Taken Chest 1V Frontal [CR] Stat Exams 01/10/21 17:07 Taken Chest w Cont [CT] Stat Exams 01/10/21 17:23 Taken TROPONIN I [CHEM] Stat Lab 01/10/21 20:00 Ordered Labs: Laboratory Tests 01/10/21 01/10/21 01/10/21 Range/Units 16:55 16:55 17:45 WBC 8.0 (4.0-10.2) K/uL RBC 6.02 H (4.33-5.41) M/uL Hgb 17.3 H D (13.1-16.8) g/dL Hct 51.9 H (39.0-49.0) % MCV 86.2 (84.0-98.0) fL MCH 28.7 (28.2-33.3) pg MCHC 33.3 (31.7-36.0) g/dL RDW 15.4 H (11.2-14.1) % Plt Count 159 (150-350) K/uL Neut % (Auto) 73.2 (45.0-80.0) % Lymph % (Auto) 13.4 (10.0-50.0) % [place] % (Auto) 8.8 (2.0-14.0) % Eos % (Auto) 4.3 (0.0-5.0) % Baso % (Auto) 0.3 (0.0-2.0) % Neut # (Auto) 5.83 (1.40-7.00) K/uL Lymph # (Auto) 1.07 (0.50-3.50) K/uL [place] # (Auto) 0.70 (0.00-1.00) K/uL Eos # (Auto) 0.34 (0.00-0.50) K/uL Baso # (Auto) 0.02 (0.00-0.20) K/uL Sodium 139 (136-145) mmol/L Potassium 4.1 (3.5-5.1) mmol/L Chloride 102 (98-107) mmol/L Carbon Dioxide 23.0 (21.0-32.0) mmol/L BUN 19 H (7-18) mg/dL Creatinine 1.31 H (0.51-1.17) mg/dL Est Cr Clr Drug Dosing TNP Estimated GFR (MDRD) 53 mL/min Glucose 103 H (70-99) mg/dL Calcium 8.8 (8.5-10.1) mg/dL Total Bilirubin 2.6 H (0.2-1.0) mg/dL AST 137 H (15-37) U/L ALT 288 H (12-78) U/L Alkaline Phosphatase 197 H (46-116) IU/L Troponin I 0.000 (0.000-0.056) ng/mL Total Protein 7.8 (6.4-8.2) g/dL Albumin 3.8 (3.4-5.0) g/dL Amylase 61 (25-115) U/L Lipase 179 (73-393) U/L Meds: Medications Discontinued Medications Generic Name Dose Route Start Last Admin Trade Name Freq PRN Reason Stop Dose Admin Acetaminophen 650 mg 01/10/21 18:02 01/10/21 18:08 Acetaminophen 325 Mg Tab PO 01/10/21 18:03 650 mg NOW STA Administration Acetaminophen Confirm 01/10/21 18:01 01/10/21 18:08 Acetaminophen 325 Mg Tab Administered 01/10/21 18:02 Not Given Dose 650 mg .ROUTE .STK-MED ONE Al Hydroxide/Mg Hydroxide 30 ml 01/10/21 16:27 01/10/21 16:29 Gi Cocktail Oral Solution 30 Ml PO 01/10/21 16:28 30 ml ONETIME ONE Administration Al Hydroxide/Mg Hydroxide Confirm 01/10/21 16:28 01/10/21 16:39 Gi Cocktail Oral Solution 30 Ml Administered 01/10/21 16:29 Not Given Dose 30 ml .ROUTE .STK-MED ONE Clonidine HCl 0.1 mg 01/10/21 16:35 01/10/21 16:39 Clonidine 0.1 Mg Tab PO 01/10/21 16:36 0.1 mg ONETIME ONE Administration Sodium Chloride 1,000 mls @ 999 mls/hr 01/10/21 17:02 01/10/21 17:00 Normal Saline IV 01/10/21 18:02 999 mls/hr .BOLUS ONE Administration Iopamidol 100 ml 01/10/21 16:29 01/10/21 18:03 Iopamidol 612 Mg/Ml 100 Ml Bottle IVPUSH 01/10/21 16:30 100 ml ONETIME ONE Administration Morphine Sulfate 4 mg 01/10/21 16:46 01/10/21 17:24 Morphine 4 Mg/Ml Syringe IVPUSH 01/10/21 16:47 2 mg ONETIME ONE Administration Morphine Sulfate 2 mg 01/10/21 18:04 01/10/21 18:08 Morphine 2 Mg/Ml Syringe IVPUSH 01/10/21 18:05 2 mg ONETIME ONE Administration Morphine Sulfate 2 mg 01/10/21 18:56 01/10/21 19:08 Morphine 2 Mg/Ml Syringe IVPUSH 01/10/21 18:57 2 mg ONETIME ONE Administration Nitroglycerin 0.4 mg 01/10/21 16:46 01/10/21 16:45 Nitroglycerin 0.4 Mg Tab.Sl SL 01/10/21 16:47 0.4 mg ONETIME ONE Administration Ondansetron HCl 4 mg 01/10/21 19:13 Ondansetron 4 Mg/2 Ml Sdv IVPUSH 01/10/21 19:14 ONETIME ONE Pantoprazole Sodium 40 mg 01/10/21 18:50 01/10/21 19:08 Pantoprazole 40 Mg Vial IVPUSH 01/10/21 18:51 40 mg ONETIME ONE Administration Departure - Departure Time of Disposition: 19:40 Disposition: Admitted As Inpatient 66 Condition: Good Clinical Impression: Abdominal pain, Gastritis - Discharge Information Sepsis Event Note (ED) - Focused Exam Vital Signs: Vital Signs Temp Pulse Resp BP BP Pulse Ox 01/10/21 18:00 113 H 21 H 160/80 H 100 01/10/21 17:20 170/100 H 01/10/21 16:55 88 23 H 85/55 L 96 01/10/21 16:45 156/114 H 61/42 L 01/10/21 16:39 156/114 H 01/10/21 16:30 96 22 H 156/114 H 100 01/10/21 16:15 36.6 C 85 22 H 199/77 H 99 - My Orders Last 24 Hours: My Active Orders 01/10/21 16:21 EKG Documentation Completion [RC] ASDIRECTED 01/10/21 16:25 Abdomen w Cont [CT] Stat 01/10/21 17:07 Chest 1V Frontal [CR] Stat 01/10/21 17:23 Chest w Cont [CT] Stat 01/10/21 20:00 TROPONIN I [CHEM] Stat - Assessment/Plan Last 24 Hours: My Active Orders 01/10/21 16:21 EKG Documentation Completion [RC] ASDIRECTED 01/10/21 16:25 Abdomen w Cont [CT] Stat 01/10/21 17:07 Chest 1V Frontal [CR] Stat 01/10/21 17:23 Chest w Cont [CT] Stat 01/10/21 20:00 TROPONIN I [CHEM] Stat
[2021-01-10] MEDS ORDERED: Morphine 4 MG/ML Syringe IVPUSH ONE (16:46)
[2021-01-10] MEDS ORDERED: Nitroglycerin 0.4 MG Tab.SL SL ONE (16:46)
[2021-01-10] MEDS ORDERED: Sodium Chloride 0.9% 1,000 ML IV ONE (17:02)
[2021-01-10 17:16] LABS: CHLORIDE,CL 102 mmol/L (98-107); SODIUM,NA 139 mmol/L (136-145)
[2021-01-10] MEDS ORDERED: Acetaminophen 325 MG Tab ONE (18:01)
[2021-01-10] MEDS ORDERED: Acetaminophen 325 MG Tab PO STA (18:02)
[2021-01-10] MEDS ORDERED: Morphine 2 MG/ML SYRINGE IVPUSH ONE ×2 (18:04→18:56)
[2021-01-10] MEDS ORDERED: Pantoprazole 40 MG Vial IVPUSH ONE (18:50)
[2021-01-10] MEDS ORDERED: Ondansetron 4 MG/2 ML SDV IVPUSH ONE (19:13)
[2021-01-10] MEDS ORDERED: Pantoprazole 40 MG Vial IVPUSH SCH (20:00)
[2021-01-10] MEDS: Sucralfate 1 GM Tab PO SCH (20:58)
[2021-01-10] MEDS ORDERED: atorvaSTATin 10 MG Tab PO ONE (21:45)
[2021-01-11] MEDS ORDERED: amLODIPine 5 MG Tab PO SCH (08:00)
[2021-01-11] MEDS ORDERED: Pantoprazole 40 MG Vial IVPUSH SCH (08:00)
[2021-01-11] MEDS ORDERED: Formoterol/Mometasone 100-5 MCG 8.8 GM Inhaler IH SCH (08:00)
[2021-01-11] MEDS: Sucralfate 1 GM Tab PO SCH ×2 (08:25→11:17)
[2021-01-11] MEDS ORDERED: Sodium Chloride 0.9% 10 ML Syringe FLUSH PRN (08:28)
[2021-01-11] MEDS ORDERED: Ertapenem 1 GM Vial IVPUSH ONE (09:43)
[2021-01-11] MEDS ORDERED: Dicyclomine 20 MG Tab PO PRN (09:44)
--- NOTE | 2021-01-11 09:52 | PCM.PN ---
- General Info Date of Service: 01/11/21 Admission Dx/Problem (Free Text): Abdominal pain Subjective Update: Doing much better today. Did well over night. No abdominal pain. No fever or chills. No chest pain or shortness of breath. No nausea, vomiting or diarrhea. Eating and drinking well. - Patient Data Vitals - Most Recent: Last Vital Signs Temp 36.6 C 01/11/21 07:49 Pulse 67 01/11/21 07:49 Resp 18 01/11/21 07:49 BP 102/64 01/11/21 07:49 Pulse Ox 95 01/11/21 07:49 Weight - Most Recent: 99.79 kg I&O - Last 24 Hours: Intake & Output 01/10/21 01/11/21 01/11/21 22:59 06:59 14:59 Intake Total 480 Output Total 400 300 Balance -400 180 Lab Results Last 24 Hours: Laboratory Results - last 24 hr 01/10/21 01/10/21 01/10/21 Range/Units 16:55 16:55 17:45 WBC 8.0 (4.0-10.2) K/uL RBC 6.02 H (4.33-5.41) M/uL Hgb 17.3 H D (13.1-16.8) g/dL Hct 51.9 H (39.0-49.0) % MCV 86.2 (84.0-98.0) fL MCH 28.7 (28.2-33.3) pg MCHC 33.3 (31.7-36.0) g/dL RDW 15.4 H (11.2-14.1) % Plt Count 159 (150-350) K/uL Neut % (Auto) 73.2 (45.0-80.0) % Lymph % (Auto) 13.4 (10.0-50.0) % [place] % (Auto) 8.8 (2.0-14.0) % Eos % (Auto) 4.3 (0.0-5.0) % Baso % (Auto) 0.3 (0.0-2.0) % Neut # (Auto) 5.83 (1.40-7.00) K/uL Lymph # (Auto) 1.07 (0.50-3.50) K/uL [place] # (Auto) 0.70 (0.00-1.00) K/uL Eos # (Auto) 0.34 (0.00-0.50) K/uL Baso # (Auto) 0.02 (0.00-0.20) K/uL Sodium 139 (136-145) mmol/L Potassium 4.1 (3.5-5.1) mmol/L Chloride 102 (98-107) mmol/L Carbon Dioxide 23.0 (21.0-32.0) mmol/L BUN 19 H (7-18) mg/dL Creatinine 1.31 H (0.51-1.17) mg/dL Est Cr Clr Drug Dosing TNP Estimated GFR (MDRD) 53 mL/min Glucose 103 H (70-99) mg/dL Calcium 8.8 (8.5-10.1) mg/dL Total Bilirubin 2.6 H (0.2-1.0) mg/dL AST 137 H (15-37) U/L ALT 288 H (12-78) U/L Alkaline Phosphatase 197 H (46-116) IU/L Troponin I 0.000 (0.000-0.056) ng/mL Total Protein 7.8 (6.4-8.2) g/dL Albumin 3.8 (3.4-5.0) g/dL Amylase 61 (25-115) U/L Lipase 179 (73-393) U/L 01/10/21 01/11/21 01/11/21 Range/Units 20:03 07:30 07:30 WBC 14.2 H (4.0-10.2) K/uL RBC 4.85 (4.33-5.41) M/uL Hgb 14.1 D (13.1-16.8) g/dL Hct 42.2 (39.0-49.0) % MCV 87.0 (84.0-98.0) fL MCH 29.1 (28.2-33.3) pg MCHC 33.4 (31.7-36.0) g/dL RDW 14.9 H (11.2-14.1) % Plt Count 130 L (150-350) K/uL Neut % (Auto) 80.0 (45.0-80.0) % Lymph % (Auto) 8.2 L (10.0-50.0) % [place] % (Auto) 11.6 (2.0-14.0) % Eos % (Auto) 0.1 (0.0-5.0) % Baso % (Auto) 0.1 (0.0-2.0) % Neut # (Auto) 11.35 H (1.40-7.00) K/uL Lymph # (Auto) 1.17 (0.50-3.50) K/uL [place] # (Auto) 1.65 H (0.00-1.00) K/uL Eos # (Auto) 0.02 (0.00-0.50) K/uL Baso # (Auto) 0.02 (0.00-0.20) K/uL Sodium 136 (136-145) mmol/L Potassium 4.4 (3.5-5.1) mmol/L Chloride 103 (98-107) mmol/L Carbon Dioxide 24.9 (21.0-32.0) mmol/L BUN 25 H (7-18) mg/dL Creatinine 1.82 H (0.51-1.17) mg/dL Est Cr Clr Drug Dosing 40.77 Estimated GFR (MDRD) 36 mL/min Glucose 116 H (70-99) mg/dL Calcium 8.1 L (8.5-10.1) mg/dL Total Bilirubin 4.5 H (0.2-1.0) mg/dL AST 146 H (15-37) U/L ALT 246 H (12-78) U/L Alkaline Phosphatase 200 H (46-116) IU/L Troponin I 0.001 (0.000-0.056) ng/mL Total Protein 5.9 L (6.4-8.2) g/dL Albumin 2.8 L (3.4-5.0) g/dL Amylase (25-115) U/L Lipase (73-393) U/L Med Orders - Current: Current Medications Amlodipine Besylate (Amlodipine 5 Mg Tab) 5 mg PO DAILY [facility] Last Admin: 01/11/21 08:34 Dose: Not Given Documented by: Atorvastatin Calcium (Atorvastatin 10 Mg Tab) 20 mg PO BEDTIME [facility] Lisinopril (Lisinopril 20 Mg Tab) 20 mg PO BEDTIME [facility] Mometasone Furoate/Formoterol Fumar (Formoterol/Mometasone 100-5 Mcg 8.8 Gm Inhaler) 2 puff IH BID [facility] Last Admin: 01/11/21 08:24 Dose: 2 puff Documented by: Pantoprazole Sodium (Pantoprazole 40 Mg Vial) 40 mg IVPUSH Q12H [facility] Last Admin: 01/11/21 08:25 Dose: 40 mg Documented by: Sodium Chloride (Sodium Chloride 0.9% 10 Ml Syringe) 10 ml FLUSH ASDIRECTED PRN PRN Reason: Keep Vein Open Sucralfate (Sucralfate 1 Gm Tab) 1 gm PO QIDACANDBED [facility] Last Admin: 01/11/21 08:25 Dose: 1 gm Documented by: Discontinued Medications Acetaminophen (Acetaminophen 325 Mg Tab) 650 mg PO NOW STA Stop: 01/10/21 18:03 Last Admin: 01/10/21 18:08 Dose: 650 mg Documented by: Acetaminophen (Acetaminophen 325 Mg Tab) Confirm Administered Dose 650 mg .ROUTE .STK-MED ONE Stop: 01/10/21 18:02 Last Admin: 01/10/21 18:08 Dose: Not Given Documented by: Al Hydroxide/Mg Hydroxide (Gi Cocktail Oral Solution 30 Ml) 30 ml PO ONETIME ONE Stop: 01/10/21 16:28 Last Admin: 01/10/21 16:29 Dose: 30 ml Documented by: Al Hydroxide/Mg Hydroxide (Gi Cocktail Oral Solution 30 Ml) Confirm Administered Dose 30 ml .ROUTE .STK-MED ONE Stop: 01/10/21 16:29 Last Admin: 01/10/21 16:39 Dose: Not Given Documented by: Atorvastatin Calcium (Atorvastatin 10 Mg Tab) 20 mg PO NOW ONE Stop: 01/10/21 21:46 Last Admin: 01/10/21 21:43 Dose: Not Given Documented by: Clonidine HCl (Clonidine 0.1 Mg Tab) 0.1 mg PO ONETIME ONE Stop: 01/10/21 16:36 Last Admin: 01/10/21 16:39 Dose: 0.1 mg Documented by: Sodium Chloride (Normal Saline) 1,000 mls @ 999 mls/hr IV .BOLUS ONE Stop: 01/10/21 18:02 Last Admin: 01/10/21 17:00 Dose: 999 mls/hr Documented by: Iopamidol (Iopamidol 612 Mg/Ml 100 Ml Bottle) 100 ml IVPUSH ONETIME ONE Stop: 01/10/21 16:30 Last Admin: 01/10/21 18:03 Dose: 100 ml Documented by: Morphine Sulfate (Morphine 4 Mg/Ml Syringe) 4 mg IVPUSH ONETIME ONE Stop: 01/10/21 16:47 Last Admin: 01/10/21 17:24 Dose: 2 mg Documented by: Morphine Sulfate (Morphine 2 Mg/Ml Syringe) 2 mg IVPUSH ONETIME ONE Stop: 01/10/21 18:05 Last Admin: 01/10/21 18:08 Dose: 2 mg Documented by: Morphine Sulfate (Morphine 2 Mg/Ml Syringe) 2 mg IVPUSH ONETIME ONE Stop: 01/10/21 18:57 Last Admin: 01/10/21 19:08 Dose: 2 mg Documented by: Nitroglycerin (Nitroglycerin 0.4 Mg Tab.Sl) 0.4 mg SL ONETIME ONE Stop: 01/10/21 16:47 Last Admin: 01/10/21 16:45 Dose: 0.4 mg Documented by: Ondansetron HCl (Ondansetron 4 Mg/2 Ml Sdv) 4 mg IVPUSH ONETIME ONE Stop: 01/10/21 19:14 Last Admin: 01/10/21 20:58 Dose: 4 mg Documented by: Pantoprazole Sodium (Pantoprazole 40 Mg Vial) 40 mg IVPUSH ONETIME ONE Stop: 01/10/21 18:51 Last Admin: 01/10/21 19:08 Dose: 40 mg Documented by: Pantoprazole Sodium (Pantoprazole 40 Mg Vial) 40 mg IVPUSH Q12H [facility] Last Admin: 01/10/21 23:39 Dose: Not Given Documented by: - Exam General: Alert, Oriented Lungs: Clear to Auscultation, Normal Respiratory Effort Cardiovascular: Regular Rate, Regular Rhythm, No Murmurs GI/Abdominal Exam: Normal Bowel Sounds, Soft, Non-Tender, No Organomegaly, No Distention, No Abnormal Bruit Skin: Warm, Dry Psy/Mental Status: Alert, Normal Affect, Normal Mood - Patient Data Lab Results Last 24 hrs: Laboratory Results - last 24 hr 01/10/21 01/10/21 01/10/21 Range/Units 16:55 16:55 17:45 WBC 8.0 (4.0-10.2) K/uL RBC 6.02 H (4.33-5.41) M/uL Hgb 17.3 H D (13.1-16.8) g/dL Hct 51.9 H (39.0-49.0) % MCV 86.2 (84.0-98.0) fL MCH 28.7 (28.2-33.3) pg MCHC 33.3 (31.7-36.0) g/dL RDW 15.4 H (11.2-14.1) % Plt Count 159 (150-350) K/uL Neut % (Auto) 73.2 (45.0-80.0) % Lymph % (Auto) 13.4 (10.0-50.0) % [place] % (Auto) 8.8 (2.0-14.0) % Eos % (Auto) 4.3 (0.0-5.0) % Baso % (Auto) 0.3 (0.0-2.0) % Neut # (Auto) 5.83 (1.40-7.00) K/uL Lymph # (Auto) 1.07 (0.50-3.50) K/uL [place] # (Auto) 0.70 (0.00-1.00) K/uL Eos # (Auto) 0.34 (0.00-0.50) K/uL Baso # (Auto) 0.02 (0.00-0.20) K/uL Sodium 139 (136-145) mmol/L Potassium 4.1 (3.5-5.1) mmol/L Chloride 102 (98-107) mmol/L Carbon Dioxide 23.0 (21.0-32.0) mmol/L BUN 19 H (7-18) mg/dL Creatinine 1.31 H (0.51-1.17) mg/dL Est Cr Clr Drug Dosing TNP Estimated GFR (MDRD) 53 mL/min Glucose 103 H (70-99) mg/dL Calcium 8.8 (8.5-10.1) mg/dL Total Bilirubin 2.6 H (0.2-1.0) mg/dL AST 137 H (15-37) U/L ALT 288 H (12-78) U/L Alkaline Phosphatase 197 H (46-116) IU/L Troponin I 0.000 (0.000-0.056) ng/mL Total Protein 7.8 (6.4-8.2) g/dL Albumin 3.8 (3.4-5.0) g/dL Amylase 61 (25-115) U/L Lipase 179 (73-393) U/L 01/10/21 01/11/21 01/11/21 Range/Units 20:03 07:30 07:30 WBC 14.2 H (4.0-10.2) K/uL RBC 4.85 (4.33-5.41) M/uL Hgb 14.1 D (13.1-16.8) g/dL Hct 42.2 (39.0-49.0) % MCV 87.0 (84.0-98.0) fL MCH 29.1 (28.2-33.3) pg MCHC 33.4 (31.7-36.0) g/dL RDW 14.9 H (11.2-14.1) % Plt Count 130 L (150-350) K/uL Neut % (Auto) 80.0 (45.0-80.0) % Lymph % (Auto) 8.2 L (10.0-50.0) % [place] % (Auto) 11.6 (2.0-14.0) % Eos % (Auto) 0.1 (0.0-5.0) % Baso % (Auto) 0.1 (0.0-2.0) % Neut # (Auto) 11.35 H (1.40-7.00) K/uL Lymph # (Auto) 1.17 (0.50-3.50) K/uL [place] # (Auto) 1.65 H (0.00-1.00) K/uL Eos # (Auto) 0.02 (0.00-0.50) K/uL Baso # (Auto) 0.02 (0.00-0.20) K/uL Sodium 136 (136-145) mmol/L Potassium 4.4 (3.5-5.1) mmol/L Chloride 103 (98-107) mmol/L Carbon Dioxide 24.9 (21.0-32.0) mmol/L BUN 25 H (7-18) mg/dL Creatinine 1.82 H (0.51-1.17) mg/dL Est Cr Clr Drug Dosing 40.77 Estimated GFR (MDRD) 36 mL/min Glucose 116 H (70-99) mg/dL Calcium 8.1 L (8.5-10.1) mg/dL Total Bilirubin 4.5 H (0.2-1.0) mg/dL AST 146 H (15-37) U/L ALT 246 H (12-78) U/L Alkaline Phosphatase 200 H (46-116) IU/L Troponin I 0.001 (0.000-0.056) ng/mL Total Protein 5.9 L (6.4-8.2) g/dL Albumin 2.8 L (3.4-5.0) g/dL Amylase (25-115) U/L Lipase (73-393) U/L Result Diagrams: 01/11/21 07:30 01/11/21 07:30 Sepsis Event Note - Evaluation Sepsis Screening Result: No Definite Risk - Focused Exam Vital Signs: Vital Signs Temp Pulse Resp BP Pulse Ox 01/11/21 07:49 36.6 C 67 18 102/64 95 01/11/21 04:00 36.3 C 69 16 95/44 L 94 L 01/10/21 23:08 37.6 C 97 20 90/47 L 93 L - Problem List & Annotations (1) Cholecystitis SNOMED Code(s): 21829769 Code(s): K81.9 - CHOLECYSTITIS, UNSPECIFIED Status: Acute Current Visit: Yes (2) Abdominal pain SNOMED Code(s): 51858753 Code(s): R10.9 - UNSPECIFIED ABDOMINAL PAIN Status: Acute Current Visit: Yes - Problem List Review Problem List Initiated/Reviewed/Updated: Yes - My Orders Last 24 Hours: My Active Orders 01/10/21 16:21 EKG Documentation Completion [RC] ASDIRECTED 01/10/21 16:25 Abdomen w Cont [CT] Stat 01/10/21 17:07 Chest 1V Frontal [CR] Stat 01/10/21 17:23 Chest w Cont [CT] Stat 01/10/21 Dinner Regular Diet [DIET] 01/10/21 19:50 Patient Status [ADT] Routine Vital Signs [RC] Q4HR DVT/VTE Prophylaxis Reflex [OM.PC] Routine Resuscitation Status Routine 01/10/21 19:55 Antiembolic Devices [RC] .Routine VTE/DVT Education [RC] PER UNIT ROUTINE 01/10/21 20:00 Cardiac Monitoring [RC] Q2HR 01/10/21 21:00 Sucralfate [Carafate] 1 gm PO QIDACANDBED 01/10/21 23:33 Isolation [COMM] Routine 01/11/21 08:00 Mometasone/Formoterol [Dulera 100-5 MCG] 2 puff IH BID Pantoprazole [ProTONIX IV] 40 mg IVPUSH Q12H amLODIPine [Norvasc] 5 mg PO DAILY 01/11/21 08:28 Sodium Chloride 0.9% [Saline Flush] 10 ml FLUSH ASDIRECTED PRN 01/11/21 09:43 Ertapenem [INVanz] 1 gm IVPUSH ONETIME ONE 01/11/21 09:44 Dicyclomine [Bentyl] 80 mg PO QIDACANDBED PRN 01/11/21 20:00 atorvaSTATin [Lipitor] 20 mg PO BEDTIME lisinopriL [Prinivil] 20 mg PO BEDTIME - Plan Plan:: Discussed findings and treatment options with the patient and his . Findings most consistent with cholecystitis. Will give him a dose of ertapenem now and discharge to home. Plan repeat dose tomorrow. Schedule RUQ ultrasound for tomorrow. Will also send him home with bentyl 20 mg to take as needed for recurrent abdominal pain.
--- NOTE | 2021-01-11 09:58 | PCM.DCSUM1 ---
Discharge Summary - Hospital Course Free Text/Narrative:: Patient was admitted to the hospital last night for acute abdominal pain. Work up in the ED was fairly unremarkable other than some elevation of his liver function tests. CT scans of the chest, abdomen and pelvis were negative. He was given protonix and carafate for possible gastritis. Labs this morning showed increased bilirubin and liver enzymes, and mild renal failure. He remained pain free and afebrile through the night. Spoke with the patient this morning and will discharge to home after a dose of ertapenem for presumed cholecystitis. Also discharged on bentyl. RUQ ultrasound tomorrow am. Patient expressed understanding of the findings and plan. - Discharge Data Discharge Date: 01/11/21 Discharge Disposition: Home, Self-Care 01 Condition: Good - Referral to Home Health Primary Care Physician: MARK Archibald - Discharge Diagnosis/Problem(s) (1) Cholecystitis SNOMED Code(s): 53725543 ICD Code: K81.9 - CHOLECYSTITIS, UNSPECIFIED Status: Acute Current Visit: Yes (2) Abdominal pain SNOMED Code(s): 65856520 ICD Code: R10.9 - UNSPECIFIED ABDOMINAL PAIN Status: Acute Current Visit: Yes - Discharge Plan Home Medications: Home Meds Aspirin 81 mg PO DAILY 02/13/19 [History] Benazepril [Lotensin] 20 mg PO BEDTIME 02/13/19 [History] amLODIPine Besylate [Amlodipine Besylate] 1 tab PO DAILY 02/13/19 [History] atorvaSTATin [Lipitor] 20 mg PO BEDTIME 02/13/19 [History] Budesonide/Formoterol Fumarate [Symbicort 80-4.5 MCG] 2 puff INH BID 01/10/21 [History] Patient Handouts: Dicyclomine tablets or capsules, Ertapenem Injection, Gallbladder Eating Plan, Cholecystitis, [id number] Forms: ED Department Discharge Referrals: Cathy Joyce PA [Primary Care Provider] - - Discharge Summary/Plan Comment DC Time >30 min.: No Discharge Summary/Plan Comment: DC to home. Bentyl as needed for abdominal pain. RUQ ultrasound tomorrow. - General Info Date of Service: 01/11/21 Admission Dx/Problem (Free Text: Abdominal pain Subjective Update: Doing much better today. Did well over night. No abdominal pain. No fever or chills. No chest pain or shortness of breath. No nausea, vomiting or diarrhea. Eating and drinking well. Functional Status: Reports: Pain Controlled - Review of Systems General: Denies: Fever, Chills Pulmonary: Denies: Shortness of Breath, Cough Cardiovascular: Denies: Chest Pain, Palpitations Gastrointestinal: Denies: Abdominal Pain, Nausea, Vomiting Genitourinary: Denies: Dysuria, Frequency, Urgency Psychiatric: Denies: Confusion, Depression - Patient Data Vitals - Most Recent: Last Vital Signs Temp 36.6 C 01/11/21 07:49 Pulse 67 01/11/21 07:49 Resp 18 01/11/21 07:49 BP 102/64 01/11/21 07:49 Pulse Ox 95 01/11/21 07:49 Weight - Most Recent: 99.79 kg I&O - Last 24 hours: Intake & Output 01/10/21 01/11/21 01/11/21 22:59 06:59 14:59 Intake Total 480 Output Total 400 300 Balance -400 180 Lab Results - Last 24 hrs: Laboratory Results - last 24 hr 01/10/21 01/10/21 01/10/21 Range/Units 16:55 16:55 17:45 WBC 8.0 (4.0-10.2) K/uL RBC 6.02 H (4.33-5.41) M/uL Hgb 17.3 H D (13.1-16.8) g/dL Hct 51.9 H (39.0-49.0) % MCV 86.2 (84.0-98.0) fL MCH 28.7 (28.2-33.3) pg MCHC 33.3 (31.7-36.0) g/dL RDW 15.4 H (11.2-14.1) % Plt Count 159 (150-350) K/uL Neut % (Auto) 73.2 (45.0-80.0) % Lymph % (Auto) 13.4 (10.0-50.0) % [place] % (Auto) 8.8 (2.0-14.0) % Eos % (Auto) 4.3 (0.0-5.0) % Baso % (Auto) 0.3 (0.0-2.0) % Neut # (Auto) 5.83 (1.40-7.00) K/uL Lymph # (Auto) 1.07 (0.50-3.50) K/uL [place] # (Auto) 0.70 (0.00-1.00) K/uL Eos # (Auto) 0.34 (0.00-0.50) K/uL Baso # (Auto) 0.02 (0.00-0.20) K/uL Sodium 139 (136-145) mmol/L Potassium 4.1 (3.5-5.1) mmol/L Chloride 102 (98-107) mmol/L Carbon Dioxide 23.0 (21.0-32.0) mmol/L BUN 19 H (7-18) mg/dL Creatinine 1.31 H (0.51-1.17) mg/dL Est Cr Clr Drug Dosing TNP Estimated GFR (MDRD) 53 mL/min Glucose 103 H (70-99) mg/dL Calcium 8.8 (8.5-10.1) mg/dL Total Bilirubin 2.6 H (0.2-1.0) mg/dL AST 137 H (15-37) U/L ALT 288 H (12-78) U/L Alkaline Phosphatase 197 H (46-116) IU/L Troponin I 0.000 (0.000-0.056) ng/mL Total Protein 7.8 (6.4-8.2) g/dL Albumin 3.8 (3.4-5.0) g/dL Amylase 61 (25-115) U/L Lipase 179 (73-393) U/L 01/10/21 01/11/21 01/11/21 Range/Units 20:03 07:30 07:30 WBC 14.2 H (4.0-10.2) K/uL RBC 4.85 (4.33-5.41) M/uL Hgb 14.1 D (13.1-16.8) g/dL Hct 42.2 (39.0-49.0) % MCV 87.0 (84.0-98.0) fL MCH 29.1 (28.2-33.3) pg MCHC 33.4 (31.7-36.0) g/dL RDW 14.9 H (11.2-14.1) % Plt Count 130 L (150-350) K/uL Neut % (Auto) 80.0 (45.0-80.0) % Lymph % (Auto) 8.2 L (10.0-50.0) % [place] % (Auto) 11.6 (2.0-14.0) % Eos % (Auto) 0.1 (0.0-5.0) % Baso % (Auto) 0.1 (0.0-2.0) % Neut # (Auto) 11.35 H (1.40-7.00) K/uL Lymph # (Auto) 1.17 (0.50-3.50) K/uL [place] # (Auto) 1.65 H (0.00-1.00) K/uL Eos # (Auto) 0.02 (0.00-0.50) K/uL Baso # (Auto) 0.02 (0.00-0.20) K/uL Sodium 136 (136-145) mmol/L Potassium 4.4 (3.5-5.1) mmol/L Chloride 103 (98-107) mmol/L Carbon Dioxide 24.9 (21.0-32.0) mmol/L BUN 25 H (7-18) mg/dL Creatinine 1.82 H (0.51-1.17) mg/dL Est Cr Clr Drug Dosing 40.77 Estimated GFR (MDRD) 36 mL/min Glucose 116 H (70-99) mg/dL Calcium 8.1 L (8.5-10.1) mg/dL Total Bilirubin 4.5 H (0.2-1.0) mg/dL AST 146 H (15-37) U/L ALT 246 H (12-78) U/L Alkaline Phosphatase 200 H (46-116) IU/L Troponin I 0.001 (0.000-0.056) ng/mL Total Protein 5.9 L (6.4-8.2) g/dL Albumin 2.8 L (3.4-5.0) g/dL Amylase (25-115) U/L Lipase (73-393) U/L Med Orders - Current: Current Medications Amlodipine Besylate (Amlodipine 5 Mg Tab) 5 mg PO DAILY [facility] Last Admin: 01/11/21 08:34 Dose: Not Given Documented by: Atorvastatin Calcium (Atorvastatin 10 Mg Tab) 20 mg PO BEDTIME [facility] Dicyclomine HCl (Dicyclomine 20 Mg Tab) 80 mg PO QIDACANDBED PRN PRN Reason: Abdominal Pain Lisinopril (Lisinopril 20 Mg Tab) 20 mg PO BEDTIME [facility] Mometasone Furoate/Formoterol Fumar (Formoterol/Mometasone 100-5 Mcg 8.8 Gm Inhaler) 2 puff IH BID [facility] Last Admin: 01/11/21 08:24 Dose: 2 puff Documented by: Pantoprazole Sodium (Pantoprazole 40 Mg Vial) 40 mg IVPUSH Q12H [facility] Last Admin: 01/11/21 08:25 Dose: 40 mg Documented by: Sodium Chloride (Sodium Chloride 0.9% 10 Ml Syringe) 10 ml FLUSH ASDIRECTED PRN PRN Reason: Keep Vein Open Sucralfate (Sucralfate 1 Gm Tab) 1 gm PO QIDACANDBED [facility] Last Admin: 01/11/21 08:25 Dose: 1 gm Documented by: Discontinued Medications Acetaminophen (Acetaminophen 325 Mg Tab) 650 mg PO NOW STA Stop: 01/10/21 18:03 Last Admin: 01/10/21 18:08 Dose: 650 mg Documented by: Acetaminophen (Acetaminophen 325 Mg Tab) Confirm Administered Dose 650 mg .ROUTE .STK-MED ONE Stop: 01/10/21 18:02 Last Admin: 01/10/21 18:08 Dose: Not Given Documented by: Al Hydroxide/Mg Hydroxide (Gi Cocktail Oral Solution 30 Ml) 30 ml PO ONETIME ONE Stop: 01/10/21 16:28 Last Admin: 01/10/21 16:29 Dose: 30 ml Documented by: Al Hydroxide/Mg Hydroxide (Gi Cocktail Oral Solution 30 Ml) Confirm Administered Dose 30 ml .ROUTE .STK-MED ONE Stop: 01/10/21 16:29 Last Admin: 01/10/21 16:39 Dose: Not Given Documented by: Atorvastatin Calcium (Atorvastatin 10 Mg Tab) 20 mg PO NOW ONE Stop: 01/10/21 21:46 Last Admin: 01/10/21 21:43 Dose: Not Given Documented by: Clonidine HCl (Clonidine 0.1 Mg Tab) 0.1 mg PO ONETIME ONE Stop: 01/10/21 16:36 Last Admin: 01/10/21 16:39 Dose: 0.1 mg Documented by: Ertapenem (Ertapenem 1 Gm Vial) 1 gm IVPUSH ONETIME ONE Stop: 01/11/21 09:44 Sodium Chloride (Normal Saline) 1,000 mls @ 999 mls/hr IV .BOLUS ONE Stop: 01/10/21 18:02 Last Admin: 01/10/21 17:00 Dose: 999 mls/hr Documented by: Iopamidol (Iopamidol 612 Mg/Ml 100 Ml Bottle) 100 ml IVPUSH ONETIME ONE Stop: 01/10/21 16:30 Last Admin: 01/10/21 18:03 Dose: 100 ml Documented by: Morphine Sulfate (Morphine 4 Mg/Ml Syringe) 4 mg IVPUSH ONETIME ONE Stop: 01/10/21 16:47 Last Admin: 01/10/21 17:24 Dose: 2 mg Documented by: Morphine Sulfate (Morphine 2 Mg/Ml Syringe) 2 mg IVPUSH ONETIME ONE Stop: 01/10/21 18:05 Last Admin: 01/10/21 18:08 Dose: 2 mg Documented by: Morphine Sulfate (Morphine 2 Mg/Ml Syringe) 2 mg IVPUSH ONETIME ONE Stop: 01/10/21 18:57 Last Admin: 01/10/21 19:08 Dose: 2 mg Documented by: Nitroglycerin (Nitroglycerin 0.4 Mg Tab.Sl) 0.4 mg SL ONETIME ONE Stop: 01/10/21 16:47 Last Admin: 01/10/21 16:45 Dose: 0.4 mg Documented by: Ondansetron HCl (Ondansetron 4 Mg/2 Ml Sdv) 4 mg IVPUSH ONETIME ONE Stop: 01/10/21 19:14 Last Admin: 01/10/21 20:58 Dose: 4 mg Documented by: Pantoprazole Sodium (Pantoprazole 40 Mg Vial) 40 mg IVPUSH ONETIME ONE Stop: 01/10/21 18:51 Last Admin: 01/10/21 19:08 Dose: 40 mg Documented by: Pantoprazole Sodium (Pantoprazole 40 Mg Vial) 40 mg IVPUSH Q12H SAVAGE Last Admin: 01/10/21 23:39 Dose: Not Given Documented by: - Exam General: Reports: Alert, Oriented Lungs: Reports: Clear to Auscultation, Normal Respiratory Effort Cardiovascular: Reports: Regular Rate, Regular Rhythm GI/Abdominal Exam: Normal Bowel Sounds, Soft, Non-Tender, No Organomegaly, No Distention, No Mass Skin: Reports: Warm, Dry
[2021-01-11] MEDS ORDERED: Ertapenem 1 GM in Sodium Chloride 0.9% 100 ML IV ONE (10:15)
[2021-01-11] MEDS ORDERED: Lisinopril 20 MG Tab PO SCH (20:00)
[2021-01-11] MEDS ORDERED: atorvaSTATin 10 MG Tab PO SCH (20:00)
--- NOTE | 2021-01-12 10:54 | PCM.SN.2 ---
- Free Text/Narrative Note: Telephone consultation at 10:[address] Myers, emergency room physician at [facility] in [place], who does agree to accept the patient for direct admission, with no further treatment recommendations given. He does agree to contact the hospitalist concerning this patient transfer and direct admission. Note private automobile transfer with the patient's driving him to that facility. Patient was seen on an outpatient basis in our radiology department for a right upper quadrant ultrasound as per discharge instructions on 01/11/2021. Verbal report from our network technical analyst, Jennyfer, shows some minimal gallbladder wall thickening and equivocal common bile duct dilatation without direct evidence of cholelithiasis and findings possibly consistent with patient's age. 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 Outpatient vital signs today were stable with blood pressure 135/81, pulse 83, respiratory rate 16, and temperature of 98.6 degrees. O2 sat 98% on room air. Secondary to his progressive hyperbilirubinemia and previous leukocytosis on 01/11 patient will likely need further hospitalization, GI work-up, etc. with possible ERCP, etc. Patient and his deny any alcohol use for the last 10 years with no apparent previous history of alcohol abuse. No evidence of fatty liver based on the above studies. He denies any known exposure to infection. No pain at this time. No further outpatient evaluations were performed today in order to expedite patient care. A copy of recent admission H&P, discharge summary, blood work, etc. will be faxed to [facility] in [place]. Vital signs and clinical exam stable at time of patient transfer. Note that x-rays will be placed on PACS for review of [facility] providers. Patient was discharged with a saline lock in place yesterday with this to be continued at time of transfer from our outpatient room today.
== END 2021-01-11 11:30 | disposition home or self-care (01) ==
LOC: LL.ED 16:14 → LL.MS 19:20
PROVIDERS: ADMIT Family Medicine; ATTEND Family Medicine
DX: R10.13 Epigastric pain (principal); E78.00 Pure hypercholesterolemia, unspecified; I10 Essential (primary) hypertension; R74.01 Elevation of levels of liver transaminase levels; E80.6 Other disorders of bilirubin metabolism; Z98.890 Other specified postprocedural states
CPT/HCPCS: 36415; 71045; 71260; 74160; 80053; 82150; 83690; 84484; 85025; 93005; 93010; 94640; 96374; 96375; 96376; 99222; 99238; 99285-25; A9270-GY; C9113; J1335; J2270; J2405; J7030; Q9967